=== PATIENT | female | born 1980 | race Two or more races ===

== ENCOUNTER → 2018-03-01 | Emergency (ER) | payer OTHER ==
[~2018-03-01] VITALS: Ht 170.2 cm; Wt 66.2 kg
[~2018-03-01] MED LIST: INTESTINEX1 CA1 PO; KETO10TA2 PO; ORPHENADRINE C100 MG PO; PEPCID20 MG PO
== END | disposition home or self-care (01) ==
LOC: ER 19:22
DX: S30.0XXA Contusion of lower back and pelvis, initial encounter (principal); V49.9XXA Car occupant (driver) (passenger) injured in unspecified traffic accident, initial encounter; Y93.89 Activity, other specified; Y92.488 Other paved roadways as the place of occurrence of the external cause; Y99.8 Other external cause status

== ENCOUNTER 2018-08-15 23:54 | Emergency (ER) | payer OTHER ==
[~2018-08-15] VITALS: Ht 167.6 cm; Wt 66.7 kg
[2018-08-16] MEDS ORDERED: DUI500 PO (03:29)
[2018-08-16] MEDS ORDERED: KETO10TA2 PO ×2 (03:29)
== END 2018-08-16 03:47 | disposition home or self-care (01) ==
LOC: ER 23:54
DX: S01.82XA Laceration with foreign body of other part of head, initial encounter (principal); W18.09XA Striking against other object with subsequent fall, initial encounter; Y93.89 Activity, other specified; Y92.89 Other specified places as the place of occurrence of the external cause; Y99.8 Other external cause status

== ENCOUNTER 2018-08-23 14:00 | Emergency (ER) | payer OTHER ==
[~2018-08-23] VITALS: Ht 170.2 cm; Wt 68.0 kg
[~2018-08-23 14:00] MED LIST changes: +DUI500 PO
== END 2018-08-23 14:43 | disposition home or self-care (01) ==
LOC: ER 14:00
DX: Z48.02 Encounter for removal of sutures (principal)

== ENCOUNTER 2020-07-13 13:13 | Outpatient (CLI) | payer OTHER | END 2020-07-13 13:57 | disposition home or self-care (01) | LOC: MRI 13:13 → MAMO-SONO 13:13 | PROVIDERS: ATTEND General Practice | DX: Z12.31 Encounter for screening mammogram for malignant neoplasm of breast (principal); N64.59 Other signs and symptoms in breast ==

== ENCOUNTER 2020-07-17 10:51 | Outpatient (CLI) | payer OTHER | END 2020-07-17 11:02 | disposition home or self-care (01) | LOC: MRI 10:51 | PROVIDERS: ATTEND General Practice | DX: M51.37 Other intervertebral disc degeneration, lumbosacral region (principal); M54.5 Low back pain | CPT/HCPCS: 72146; 72148 ==